=== PATIENT | male | born 1970 | race Caucasian/White ===

== ENCOUNTER 2020-06-21 04:07 | Emergency (ER) | payer OTHER, SELFPAY ==
[2020-06-21] VITALS (23 sets, daily range): BP systolic 151–217; BP diastolic 81–100; PULSE 59–85; RESP 5–16; TEMP 37.2; O2SAT 94–99; BMI 35.9
--- NOTE | 2020-06-21 04:19 | ED_ITS ---
HPI - General Adult <DO Marla Wiley Last Filed: 06/21/20 23:53> General Chief complaint: Abdominal Pain Stated complaint: pain in upper abd Time Seen by Provider: 06/21/20 04:19 Source: patient Mode of arrival: Ambulatory Limitations: no limitations History of Present Illness HPI narrative: 49-year-old male here for evaluation of upper abdominal/epigastric tenderness. Patient states that it started approximately 930 last evening. It has been consistent since then. Some nausea but no vomiting. No change in urinary status. No change in bowel habits. No fevers he states he has had something similar to this greater than 15 years ago and went to an emergency department and was given what he states was a ?GI cocktail? which resolved his symptoms. Has not tried anything for his symptoms today prior to arrival. Related Data Previous Rx's Medication Instructions Recorded amlodipine 5 mg PO DAILY #30 tab 06/21/20 dicyclomine 20 mg PO QID PRN #15 tab 06/21/20 hydrocodone-acetaminophen [[place]] 1 tab PO Q6H PRN #12 tab 06/21/20 ondansetron HCl [Zofran] 4 mg PO Q6H PRN #12 tab 06/21/20 Allergies Allergy/AdvReac Type Severity Reaction Status Date / Time No Known Drug Allergies Allergy Verified 06/21/20 04:46 Review of Systems <DO Marla Wiley Last Filed: 06/21/20 23:53> Constitutional Constitutional: Denies fever(s) and Denies headache(s) ENT Ears, Nose, Mouth, and Throat: Denies headache(s) Cardiovascular Cardiovascular: Denies chest pain and Denies dyspnea Respiratory Respiratory: Denies dyspnea Gastrointestinal Gastrointestinal: Reports abdominal pain, Denies change in bowel habits, Denies diarrhea, Denies nausea and Denies vomiting Genitourinary Genitourinary: Denies dysuria Genitourinary: Denies dysuria Musculoskeletal Musculoskeletal: Denies arthralgias and Denies myalgias Integumentary/Breasts Skin/Breast: Denies lesions and Denies rash Neurologic Neurologic: Denies behavioral changes and Denies headache(s) Psychiatric Psychiatric: Denies behavioral changes Hematologic/Lymphatic Hematologic/Lymphatic: Denies easy bleeding and Denies easy bruising Patient History <DO Marla Wiley Last Filed: 06/21/20 23:53> Medical History Patient denies medical problems (Acute) Social History Smoking Status: Never smoker Exam <Matteo Meza DO - Last Filed: 06/21/20 23:53> Initial Vital Signs Initial Vital Signs: Vital Signs Pulse Rate 82 06/21/20 04:12 Blood Pressure 195/100 H 06/21/20 04:12 Pulse Oximetry 98 06/21/20 04:12 Const General: cooperative and comfortable Limitations: mental status not altered HENMT Head: normal to inspection and normocephalic Resp Effort & Inspection: normal respiratory effort Auscultation: clear to auscultation bilaterally Cardio Rate: regular rate Rhythm: regular rhythm GI Inspection: non-distended Palpation: soft, No firm and No tender Back/Spine/Pelvis Back: No CVA tenderness Skin Lesions: no lesions Rashes: no rashes Neuro General: patient alert and patient awake Cognition: normal cognition Speech: speech normal Extrem General: normal to inspection and capillary refill normal Psych Appearance: grossly normal and well kempt <Logan Ballesteros MD - Last Filed: 06/21/20 17:02> Initial Vital Signs Initial Vital Signs: Vital Signs Pulse Rate 82 06/21/20 04:12 Blood Pressure 195/100 H 06/21/20 04:12 Pulse Oximetry 98 06/21/20 04:12 Scores <Matteo Meza DO - Last Filed: 06/21/20 23:53> GCS Jeremy coma scale eye opening: Spontaneous [place] coma scale verbal response: Orientated Jeremy coma scale motor response: Obey commands Jeremy coma scale total score: 15 Course <Matteo Meza DO - Last Filed: 06/21/20 23:53> Orders Ordered: Discontinued Medications Al Hydrox/Mg Hydrox/Simethicone 20 ml/ Lidocaine HCl 15 ml 0 ml PO NOW ONE Stop: 06/21/20 04:25 Last Admin: 06/21/20 04:50 Dose: 30 ml Documented by: CTRALONZO Dicyclomine HCl (Bentyl) 20 mg PO NOW ONE Stop: 06/21/20 08:12 Last Admin: 06/21/20 08:19 Dose: 20 mg Documented by: DANISHA Hydralazine HCl (Apresoline) 5 mg IV NOW ONE Stop: 06/21/20 09:13 Last Admin: 06/21/20 09:32 Dose: Not Given Documented by: DANISHA Sodium Chloride (Normal Saline 0.9%) 1,000 mls @ 1,000 mls/hr IV BOLUS ONE Stop: 06/21/20 06:38 Last Infusion: 06/21/20 08:12 Dose: 0 mls/hr Documented by: Admin: 06/21/20 06:06 Dose: 1,000 mls/hr Documented by: EARL Ketorolac Tromethamine (Toradol) 30 mg IV NOW ONE Stop: 06/21/20 08:12 Last Admin: 06/21/20 08:19 Dose: 30 mg Documented by: DANISHA Pantoprazole Sodium (Protonix) 40 mg IV NOW ONE Stop: 06/21/20 04:25 Last Admin: 06/21/20 04:50 Dose: 40 mg Documented by: DAVE Vital Signs Vital signs: Vital Signs - 8 hr 06/21/20 09:30 06/21/20 09:31 06/21/20 09:32 Pulse Rate 82 79 Blood Pressure 173/99 H 156/91 H 151/81 H Pulse Oximetry 97 98 <Logan Ballesteros MD - Last Filed: 06/21/20 17:02> Orders Ordered: Discontinued Medications Al Hydrox/Mg Hydrox/Simethicone 20 ml/ Lidocaine HCl 15 ml 0 ml PO NOW ONE Stop: 06/21/20 04:25 Last Admin: 06/21/20 04:50 Dose: 30 ml Documented by: DAVE Dicyclomine HCl (Bentyl) 20 mg PO NOW ONE Stop: 06/21/20 08:12 Last Admin: 06/21/20 08:19 Dose: 20 mg Documented by: DANISHA Hydralazine HCl (Apresoline) 5 mg IV NOW ONE Stop: 06/21/20 09:13 Last Admin: 06/21/20 09:32 Dose: Not Given Documented by: DANISHA Sodium Chloride (Normal Saline 0.9%) 1,000 mls @ 1,000 mls/hr IV BOLUS ONE Stop: 06/21/20 06:38 Last Infusion: 06/21/20 08:12 Dose: 0 mls/hr Documented by: Admin: 06/21/20 06:06 Dose: 1,000 mls/hr Documented by: EARL Ketorolac Tromethamine (Toradol) 30 mg IV NOW ONE Stop: 06/21/20 08:12 Last Admin: 06/21/20 08:19 Dose: 30 mg Documented by: DANISHA Pantoprazole Sodium (Protonix) 40 mg IV NOW ONE Stop: 06/21/20 04:25 Last Admin: 06/21/20 04:50 Dose: 40 mg Documented by: DAVE Vital Signs Vital signs: Vital Signs - 8 hr 06/21/20 09:30 06/21/20 09:31 06/21/20 09:32 Pulse Rate 82 79 Blood Pressure 173/99 H 156/91 H 151/81 H Pulse Oximetry 97 98 Medical Decision Making <Matteo Meza DO - Last Filed: 06/21/20 23:53> Lab Data Lab results reviewed: Yes I reviewed the patient's lab results. Result diagrams: 06/21/20 04:15 06/21/20 04:15 Labs: Lab Results 06/21/20 06/21/20 Range/Units 04:15 04:15 WBC 8.3 (4.5-11.0) X10^3/uL RBC 5.32 (4.5-5.9) X10^6/uL Hgb 16.2 (13.5-17.5) g/dL Hct 46.9 (41-53) % MCV 88.0 (80-100) fL MCH 30.4 (26-34) PG MCHC 34.6 (30-36) % RDW 13.0 (11.6-14.8) % Plt Count 253 (150-400) X10^3/uL Neut % (Auto) 71.1 (50-75) % Lymph % (Auto) 20.8 L (25-40) % [place] % (Auto) 5.9 (3-14) % Eos % (Auto) 1.7 L (2-4) % Baso % (Auto) 0.5 (0-2) % Neut # (Auto) 5900 (5200-0460) /uL Lymph # (Auto) 1700 (5887-4528) /uL [place] # (Auto) 500 (0-900) /uL Eos # (Auto) 100 (0-450) /uL Baso # (Auto) 0 (0-100) /uL Sodium 135 L (137-145) mmol/L Potassium 4.0 (3.4-5.1) mmol/L Chloride 103 (98-107) mmol/L Carbon Dioxide 24 (22-32) mmol/L BUN 10 (9-20) mg/dL Creatinine 0.78 (0.66-1.25) mg/dL Estimated GFR > 60.0 (>60) mL/min BUN/Creatinine Ratio 12.8 (6-22) Glucose 134 H (70-100) mg/dL Calcium 9.5 (8.4-10.2) mg/dL Total Bilirubin 1.2 (0.2-1.3) mg/dL AST 32 (17-59) IU/L ALT 39 (<50) IU/L Alkaline Phosphatase 115 (38-126) U/L Troponin I < 0.012 (0.01-0.034) ng/mL Total Protein 7.1 (6.3-8.2) g/dL Albumin 4.3 (3.5-5.0) g/dL Globulin 2.8 (1.7-4.1) g/dL Albumin/Globulin Ratio 1.5 (1.0-2.8) Lipase 87 (23-300) U/L Urine Dip Bedside Urine Glucose Negative Bedside Urine Bilirubin - Negative Bedside Urine Ketone - Negative Urine Specific [place] 1.010 Bedside Urine Occult Blood - Negative Bedside Urine pH 6.5 Bedside Urine Protein - Negative Bedside Urine Urobilinogen - Negative Bedside Urine Nitrite - Negative Bedside Urine Leukocytes - Negative Esterase Point of care testing: Urine Dip Bedside Urine Glucose Negative Bedside Urine Bilirubin - Negative Bedside Urine Ketone - Negative Urine Specific [place] 1.010 Bedside Urine Occult Blood - Negative Bedside Urine pH 6.5 Bedside Urine Protein - Negative Bedside Urine Urobilinogen - Negative Bedside Urine Nitrite - Negative Bedside Urine Leukocytes - Negative Esterase Imaging Data CT scan - abdomen/pelvis: Radiologist's Impression: Subtle changes within gallbladder lumen and subtle stranding surrounding the gallbladder reason possibility of cholecystiti s. No bile duct obstruction or obvious time. Ultrasound is recommended. Otherwise no acute abnormality ECG Data Prior ECG tracings: not available for review Interpretation: Sinus rhythm Ventricular rate of 74 Normal axis Normal QRS Normal QTC No ST T wave changes MDM Narrative Medical decision making narrative: Patient with a normal EKG. Troponin negative greater than 6 hours of the onset of his symptoms. I feel this is less likely cardiac in origin. Patient had minimal if any improvement after the GI cocktail on the Protonix. He denied the need for any further medication. CT scan was ordered given the location of his symptoms lack of definitive etiology. It does show concerns for potential gallbladder pathology. His lipase and liver enzymes are unremarkable. Right upper quadrant ultrasound was ordered. Care turned over to Dr. Ballesteros a change of shift to follow up on ultrasound and disposition. <Logan Ballesteros MD - Last Filed: 06/21/20 17:02> Lab Data Labs: Lab Results 06/21/20 06/21/20 Range/Units 04:15 04:15 WBC 8.3 (4.5-11.0) X10^3/uL RBC 5.32 (4.5-5.9) X10^6/uL Hgb 16.2 (13.5-17.5) g/dL Hct 46.9 (41-53) % MCV 88.0 (80-100) fL MCH 30.4 (26-34) PG MCHC 34.6 (30-36) % RDW 13.0 (11.6-14.8) % Plt Count 253 (150-400) X10^3/uL Neut % (Auto) 71.1 (50-75) % Lymph % (Auto) 20.8 L (25-40) % [place] % (Auto) 5.9 (3-14) % Eos % (Auto) 1.7 L (2-4) % Baso % (Auto) 0.5 (0-2) % Neut # (Auto) 5900 (6748-0887) /uL Lymph # (Auto) 1700 (6714-3550) /uL [place] # (Auto) 500 (0-900) /uL Eos # (Auto) 100 (0-450) /uL Baso # (Auto) 0 (0-100) /uL Sodium 135 L (137-145) mmol/L Potassium 4.0 (3.4-5.1) mmol/L Chloride 103 (98-107) mmol/L Carbon Dioxide 24 (22-32) mmol/L BUN 10 (9-20) mg/dL Creatinine 0.78 (0.66-1.25) mg/dL Estimated GFR > 60.0 (>60) mL/min BUN/Creatinine Ratio 12.8 (6-22) Glucose 134 H (70-100) mg/dL Calcium 9.5 (8.4-10.2) mg/dL Total Bilirubin 1.2 (0.2-1.3) mg/dL AST 32 (17-59) IU/L ALT 39 (<50) IU/L Alkaline Phosphatase 115 (38-126) U/L Troponin I < 0.012 (0.01-0.034) ng/mL Total Protein 7.1 (6.3-8.2) g/dL Albumin 4.3 (3.5-5.0) g/dL Globulin 2.8 (1.7-4.1) g/dL Albumin/Globulin Ratio 1.5 (1.0-2.8) Lipase 87 (23-300) U/L Urine Dip Bedside Urine Glucose Negative Bedside Urine Bilirubin - Negative Bedside Urine Ketone - Negative Urine Specific [place] 1.010 Bedside Urine Occult Blood - Negative Bedside Urine pH 6.5 Bedside Urine Protein - Negative Bedside Urine Urobilinogen - Negative Bedside Urine Nitrite - Negative Bedside Urine Leukocytes - Negative Esterase Point of care testing: Urine Dip Bedside Urine Glucose Negative Bedside Urine Bilirubin - Negative Bedside Urine Ketone - Negative Urine Specific [place] 1.010 Bedside Urine Occult Blood - Negative Bedside Urine pH 6.5 Bedside Urine Protein - Negative Bedside Urine Urobilinogen - Negative Bedside Urine Nitrite - Negative Bedside Urine Leukocytes - Negative Esterase Discharge Plan Departure Patient Disposition: Home Clinical Impression: Gallbladder pain Hypertension Qualifiers: Hypertension type: essential hypertension Qualified Code(s): I10 - Essential (primary) hypertension Cholelithiasis Qualifiers: Cholelithiasis location: gallbladder Cholecystitis presence: with cholecystitis Cholecystitis acuity: unspecified acuity Biliary obstruction: without biliary obstruction Qualified Code(s): K80.10 - Calculus of gallbladder with chronic cholecystitis without obstruction Discharge Date/Time: 06/21/20 09:56 Instructions: Essential Hypertension, DI for Gallstones, DI for Abdominal Pain- Adult Activity Restrictions/Additional Instructions: 1. Follow-up with your primary care physician to help manage her pain and discomfort and to evaluate you for your hypertension. 2. Take the amlodipine 5 mg per day to help control your blood pressure. 3. Your CT scan and ultrasound revealed that you have gallstones with questionable mild inflammatory changes and thickening of your gallbladder wall. If you develop increased pain and discomfort, fever, uncontrolled nausea and vomiting, you need to return to the emergency department to be re-evaluated. 4. Call the general surgeon Dr. Otto's office tomorrow to make a follow-up appointment to be evaluated to have your gallbladder removed. 5. If you develop severe abdominal pain, uncontrolled nausea and vomiting, uncontrolled diarrhea, vomiting bile, blood, black tarry stools, bloody stools, dizziness, lightheadedness, profuse shortness of breath, chest pain , fever, or passing-out you need to proceed to the nearest emergency department. 6. To keep yourself hydrated you need to drink between 2 and 4 L of fluid per day. Advance her diet as tolerated. Avoid fatty greasy foods which will stim ulate the gallbladder to contract and may cause should have increased pain and discomfort. 7. Take the medications as prescribed: Zofran 4 mg 3 to 4 times a day for nausea and vomiting, Bentyl 20 mg 3 to 4 times a day for abdominal pain and cramps, Norco5/ 325 as a rescue medication. Prescriptions: New dicyclomine 20 mg tablet 20 mg PO QID PRN (Reason: abdominal discomfort) Qty: 15 RF: 0 ondansetron HCl [Zofran] 4 mg tablet 4 mg PO Q6H PRN (Reason: nausea and vomiting) Qty: 12 RF: 0 hydrocodone-acetaminophen [[place]] 5-325 mg tablet 1 tab PO Q6H PRN (Reason: pain) Qty: 12 RF: 0 amlodipine 5 mg tablet 5 mg PO DAILY Qty: 30 RF: 0 Referrals: Vikas Smith MD [Physician] - (Cholelithiasis with mild GB wall thickening) <Logan Ballesteros MD - Last Filed: 06/21/20 17:02> Cosign ED Attending Cosignature Attestation: 0720: Report was provided by at the change of shift. The patient's pain is 5/10 in intensity in he does not want any pain medicine at this time. The patient has questionable cholecystitis with stones in the gallbladder on the CT scan and ultrasound was obtained and we are waiting for the official report to see if the patient has of gallstones or acute cholecystitis to determine whether not he needs to be admitted. Depending on the report will discuss the options with the patient. The patient may be able to go home and be evaluated by General surgery as an outpatient. 0814:Review: Laboratory chemistries revealed a WBC of 8.3, glucose 134, electrolytes normal, bilirubin 1.2, liver function tests normal, lipase 87. CT scan of abdomen revealed: 1. The subtle changes within the gallbladder lumen and subtle stranding surrounding the gallbladder raises the possibility of cholecystitis. There is no bile duct obstruction or obvious stone noted. Ultrasound is recommended. 2. Otherwise there is no acute abnormality. 3. There is degenerative changes of the lumbar spine with moderate canal and foraminal stenosis at L4-L5. At the present time we are waiting for the official report from the ultrasound of the gallbladder to discuss the options with the patient and possibly the general surgeon on-call. 0924: The patients US of his gallbladder revealed: 1. Cholelithiasis. 2. Gallbladder wall thickening, which may indicate cholecystitis. However the patient does not demonstrate tenderness overlying the gallbladder. Clinical correlation is recommended. 0931: The patient states that his pain and discomfort completely resolved after being administered Bentyl and Toradol. He was informed of the ultrasound report and CT report and has elected to be discharged and to follow-up with the general surgeon as an outpatient. The patient will be referred to Dr. Smith.
[2020-06-21 04:31] LABS: Add Manual Diff / Slide Review NO; Basophils Absolute Auto 0 /uL (0-100); Basophils Percent Auto 0.5 % (0-2); Eosinophils Absolute Auto 100 /uL (0-450); Eosinophils Percent Auto 1.7 % (2-4); Hematocrit 46.9 % (41-53); Hemoglobin 16.2 g/dL (13.5-17.5); Lymphocytes Absolute Auto 1700 /uL (1100-4500); Lymphocytes Percent Auto 20.8 % (25-40); Mean Corpuscular HGB Conc 34.6 % (30-36); Mean Corpuscular Hemoglobin 30.4 PG (26-34); Monocytes Absolute Auto 500 /uL (0-900); Monocytes Percent Auto 5.9 % (3-14); Neutrophils Absolute Auto 5900 /uL (1500-7000); Neutrophils Percent Auto 71.1 % (50-75); Platelet Count 253 X10^3/uL (150-400); Red Blood Cell Count 5.32 X10^6/uL (4.5-5.9); White Blood Cell Count 8.3 X10^3/uL (4.5-11.0)
[2020-06-21 04:43] LABS: Alanine Aminotransferase 39 IU/L (<50); Albumin 4.3 g/dL (3.5-5.0); Albumin Globulin Ratio 1.5 (1.0-2.8); Alkaline Phosphatase 115 U/L (38-126); Aspartate Aminotransferase 32 IU/L (17-59); BUN Creatinine Ratio 12.8 (6-22); Bilirubin Total 1.2 mg/dL (0.2-1.3); Blood Urea Nitrogen 10 mg/dL (9-20); Calcium 9.5 mg/dL (8.4-10.2); Carbon Dioxide 24 mmol/L (22-32); Chloride 103 mmol/L (98-107); Estimated Glomerular Filt Rate > 60.0 mL/min (>60); Globulin 2.8 g/dL (1.7-4.1); Glucose 134 mg/dL (70-100); HEMOLYSIS 23 (0-50); Lipase 87 U/L (23-300); Sodium 135 mmol/L (137-145); Total Protein 7.1 g/dL (6.3-8.2)
[2020-06-21] MEDS: PANTOPRAZOLE 40 MG VIAL IV (04:50)
[2020-06-21] MEDS: MAG HYDROX/ALUMINUM/SIMETH SUS 20 ML, LIDOCAINE VISCOUS 2% 15 ML PO (04:50)
[2020-06-21 04:54] LABS: Troponin I < 0.012 ng/mL (0.01-0.034)
--- NOTE | 2020-06-21 05:40 | DI.CT.S_ITS ---
PROCEDURE: CT ABDOMEN PELVIS W CON INDICATIONS: epigastric abd pain TECHNIQUE: After the administration of intravenous contrast, 5 mm thick sections acquired from the diaphragm to the symphysis. 5 mm coronal and sagittal reformats were acquired. For radiation dose reduction, the following was used: automated exposure control, adjustment of mA and/or kV according to patient size. COMPARISON: None. FINDINGS: Image quality: Excellent. ABDOMEN: Lung bases: Lung bases are clear. Heart size is normal. Solid organs: Liver is normal in size and enhancement. Gallbladder demonstrates mild surrounding ground-glass density. Biliary system is non dilated. Pancreas enhances normally. Spleen is normal in size and enhancement. No adrenal nodules. Kidneys demonstrate normal size and enhancement, without hydronephrosis. Peritoneum and bowel: Bowel loops demonstrate normal wall thickness and caliber. No free fluid or air. Normal appendix. Nodes and vessels: No retroperitoneal or mesenteric adenopathy by size criteria. Aorta and inferior vena cava are normal in size. Miscellaneous: No ventral hernias. PELVIS: Genitourinary: Bladder wall thickness is normal. Miscellaneous: No inguinal hernias or adenopathy. Bones: No suspicious bony lesions. No vertebral body compression fractures. IMPRESSION: 1. Mild fat stranding surrounding the gallbladder, which could indicate mild/early cholecystitis. This could be further assessed with ultrasound, if clinically indicated. 2. Normal appendix. 3. Concordant with preliminary interpretation. Dictated by: Lawrence Monte M.D. on 06/21/2020 at 9:05 Approved by: Lawrence Monte M.D. on 06/21/2020 at 9:06
[2020-06-21] MEDS: SODIUM CHLORIDE 0.9% 1,000 ML 1000 ML IV (06:06)
--- NOTE | 2020-06-21 06:25 | DI.US.S_ITS ---
PROCEDURE: US ABDOMEN LIMITED INDICATIONS: RUQ, GB TECHNIQUE: Real-time focused scanning was performed of the abdomen, with image documentation. COMPARISON: [facility], CT, CT ABDOMEN PELVIS W CON, 06/21/2020, 5:40. FINDINGS: Liver is within normal limits. Gallbladder wall is thickened to 5 mm. Negative sonographic Bansal sign. Wall echo shadow complex suggestive of multiple internal calculi. No biliary ductal dilatation. Visualized pancreas within normal limits. IMPRESSION: 1. Cholelithiasis. 2. Gallbladder wall thickening, which may indicate cholecystitis. However, the patient does not demonstrate tenderness overlying the gallbladder. Clinical correlation recommended. Dictated by: Lawrence Monte M.D. on 06/21/2020 at 9:07 Approved by: Lawrence Monte M.D. on 06/21/2020 at 9:08
[2020-06-21] MEDS: DICYCLOMINE 10 MG CAPSULE 20 MG PO (08:19)
[2020-06-21] MEDS: KETOROLAC 60 MG/2 ML VIAL 30 MG IV (08:19)
== END 2020-06-21 09:56 | disposition home or self-care (01) ==
PROVIDERS: Emergency Medicine; Emergency Provider Emergency Medicine; Family Provider Family Medicine
DX: K80.10 Calculus of gallbladder with chronic cholecystitis without obstruction (principal); I10 Essential (primary) hypertension; R11.0 Nausea
CPT/HCPCS: 36415; 74177; 76705; 80053; 81003; 83690; 84484; 85025; 93005; 96361; 96374; 96375; 99284; 99285; C9113; J1885; Q9967

== ENCOUNTER → 2020-07-05 09:34 | Outpatient (CLI) | payer OTHER, SELFPAY ==
[2020-07-06 21:49] LABS: COVID19 Sendout Not Detected (Not Detect)
== END ==
PROVIDERS: Family Provider Family Medicine; Visit Provider Physician Assistant
DX: Z11.59 Encounter for screening for other viral diseases (principal)
CPT/HCPCS: 87635

== ENCOUNTER 2020-07-08 08:05 | Day surgery (SDC) | payer OTHER, SELFPAY ==
[2020-07-03 10:55] VITALS: BMI 34.7
[2020-07-08] VITALS (13 sets, daily range): BP systolic 127–155; BP diastolic 72–93; PULSE 64–97; RESP 14–20; TEMP 36.3–36.9; O2SAT 92–100; BMI 33.5
--- NOTE | 2020-07-08 | PATH_ITS ---
[facility] Accession Number: [id number] . 01 Material submitted: . gallbladder - GALLBLADDER . 01 Clinical history: . LAP MARIANNE . 02 Diagnosis: Gallbladder, Laparoscopic Cholecystectomy: Chronic cholecystitis and cholelithiasis. Cystic duct is obstructed by a stone at gross examination. [facility] 07/10/2020 1550 Local . 02 Electronically signed: . Shante Ordaz MD, Pathologist NPI- [id number] . 01 Gross description: . Received in formalin, labeled with the patient's name, MRN and gallbladder, is a 9.0 x 3.2 x 2.5 cm gallbladder with an attached cystic duct measuring 0.1 cm in length by 0.3 cm in diameter. The cystic duct is obstructed by a 1.2 cm in greatest dimension red-brown calculus. The serosal surface is pink-gibbs and smooth. The gallbladder is opened to reveal multiple red-brown calculi ranging in size from 0.4 cm to 1.0 cm in greatest dimension. The mucosal surface is pink-gibbs and trabeculated. The gallbladder wall measures up to 0.5 cm. No abnormalities are identified. No lymph node is identified. The cystic duct margin is inked black. [employer] sections of the gallbladder body, the gallbladder wall, and a shave of the cystic duct margin are submitted in cassette A1. (SD/[id number]) /MRV 07/09/2020 1039 Local . 02 Pathologist provided ICD-10: K80.20 . 02 CPT . 409128 Performed at: 01 [facility] [id number], [place], [place] [id number] MD Jhon Sullivan MD Phone: [phone] Performed at: [address] [facility] [id number] [place] [id number] MD Elenita Cox MD Phone: [phone]
[2020-07-08] MEDS: LACTATED RINGERS 1,000 ML 100 ML IV (09:00)
--- NOTE | 2020-07-08 09:03 | SUR.PREOP ---
Called surgeon in OR to ask about indacyanine green injection. Dr. Myers gave verbal order to give 25mg of indocyanine green IV on patient arrival to preop area. To be reconstituted and given per package instructions. Given per order at 0855.
--- NOTE | 2020-07-08 09:09 | PM.PREOP ---
Pre-operative Note COVID-19 COVID-19 status: Negative Result date/Date tested (Pos, Neg/Pending): 07/05/20 Interval Note History & Physical reviewed/Exam performed by Physician: Yes Changes to H&P: No
[2020-07-08] MEDS: Non-Formulary Medication (Indocyanine Green 25 MG) 25 EACH IV (09:31)
[2020-07-08] MEDS: PIPERACILLIN-TAZO 3.375 GM/50 ML FROZ.PIGGY IV (09:40)
[2020-07-08] MEDS: BUPIVACAINE 0.25% W/ EPI 30 ML VIAL INJ (10:09)
--- NOTE | 2020-07-08 11:08 | SUR.OPER ---
19fr round roger drain
[2020-07-08] MEDS: fentaNYL 100 MCG/2 ML INJ IV ×2 (12:03→12:09)
--- NOTE | 2020-07-08 12:18 | P.OP_ITS ---
Operative Date/Time/Diagnoses Date of procedure: 07/08/20 Time of procedure: 12:18 Pre-op diagnosis: Symptomatic cholelithiasis Post-op diagnosis: other (Symptomatic cholelithiasis, chronic cholecystitis) Procedure & Clinicians Procedure: Laparoscopic cholecystectomy, indocyanine green cholangiography Same procedure as scheduled: Yes Indications: 50-year-old man with symptomatic cholelithiasis Surgeon: Rebeca Myers Click Yes if Unassisted: Yes Anesthesia Type: General Operative Notes Findings: Thickened gallbladder, covered with a dense fatty inflammatory rind, with multiple accessory vessels going to the gallbladder, good visualization of the cystic duct using indocyanine green Specimen(s): other (Gallbladder) Estimated Blood Loss (mL): 150 Procedure in detail: The patient was brought into the operating room and placed supine on the OR table. Sequential compression devices were placed on both legs and turned on. Appropriate perioperative antibiotics were given prior to the start of surgery. General anesthesia was induced the patient was intubated. The abdomen was prepped and draped in sterile fashion. Surgical time-out was conducted. Local anesthetic was injected under the skin just superior to the umbilicus and a 5 mm vertical incision was made at this site. The umbilical stalk was grasped with a Rukhsana and elevated. A Veress needle was passed through the fascia into proper position. The position was tested with a saline drop test which was appropriate for intra-abdominal Veress needle placement. The abdomen was then insufflated in the usual fashion. Once insufflated to 15 mm Hg the Veress needle was removed and a 5 mm optical trocar was placed under direct vision using a 5 mm 30 degree scope. Once the camera was inside the abdomen I took a look around. There was no injury from port placement. Two additional ports were placed in a similar fashion in the right upper quadrant and a 10 mm port was placed in the epigastrium. I grasped and elevated the gall bladder, and found that it was deeply hard and thickened with a thick fatty rind encasing it. I grasped the fundus with a toothed grasper and elevated it in the usual way. The thick fatty rind required prolonged and tedious dissection to get through it safely. This fatty rind was well vascularized and there were multiple arterial branches that had to be controlled and divided individually during the dissection. Indocyanine green was given previously in the pre op area, so at this point I was able to turn on the flourescent lamp and view the bile ducts. This was very helpful as the ducts were obscured with acute and chronic inflammatory tissue. Once the pathway of the ducts was clearly seen, I was able to proceed with dissection of the cystic duct and artery. The cystic duct was soft and narrow, with no obstructing stones. Once I was able to clearly identify the cystic artery with liver behind and between the two structures, I placed three clips on the patient side and once clip on the gall bladder side and divided the duct and artery using laparoscopic [place]. Once this was done, I dissected the gall bladder off of the gall bladder fossa of the liver. Again, multiple accessory vessels were encountered entering the gall bladder and were controlled with endoclips and cautery. Once it was entirely freed from the liver, the gall bladder was placed inside an Endo-Catch bag and removed through the epigastric port site. I did have to enlarge the epigastric site in order to get the gallbladder out as it was full of large stones. Once it was out and passed off to the back table I then took another look inside the abdomen. I irrigated with one liter of saline, and juárez ctioned clean any remaining blood or fluid on the lateral side of the liver and in the subhepatic space. The bleeding vessels were controlled with clips. There was a small amount of oozing from the liver surface which was controlled with cautery and Surgicel. At this point a 19 round roger drain was placed through the right lateral port site, and positioned in the gall bladder fossa due to concern for recurrent bleeding after clipping and cauterizing several accessory vessels going to the gall bladder which were difficult to control.. The drain was secured to the skin with a 3-0 Nylon suture. The epigastric port site was closed with O Vicryl using a Bladimir Kaiser device. At this point the insufflation was removed from the abdomen and the epigastric port site was closed with 3-O Vicryl in the subcutaneous layers, and 4 Monocryl in the skin. The remaining port sites were closed with 4 Monocryl in the skin. The epigastric port site was sealed with steri strips. The remaining ports were sealed with Dermabond. Local anesthetic was given at each of the port sites and in the fascia. This concluded the procedure. At this point the needle sponge and instrument counts were correct x 2. The gallbladder was passed off the table for pathology. Patient was awakened from anesthesia and extubated. He was transferred to the postanesthesia care unit in stable condition. Complications: none Post-operative Condition: stable Disposition: PACU
[2020-07-08] MEDS: ACETAMINOPHEN 325 MG TABLET 650 MG PO (12:47)
[2020-07-08] MEDS: OXYCODONE/ACETAMINOPHEN 5/325 TABLET 1 TAB PO (12:48)
[2020-07-08] MEDS: HYDROMORPHONE 1 MG INJ IV (13:45)
--- NOTE | 2020-07-08 15:39 | PC.NURSE ---
PT ACCEPTED TO ROOM 229 POST OP WITH STABLE VS- AFEBRILE AND PT CONTROLLED AT PRESENT ADMISSION COMPLETED-LAP SITEES X 4 BALDEMAR DRAIN WITH NO DRAINAGE - ORIENTED TO ROOM AND CALL LIGHT
[2020-07-08] MEDS: PIPERACILLIN-TAZO 4.5 GM/100 ML FROZ.PIGGY IV ×2 (15:53→21:26)
[2020-07-08] MEDS: OXYCODONE/ACETAMINOPHEN 5/325 TABLET 2 TAB PO ×2 (15:55→21:00)
--- NOTE | 2020-07-08 17:06 | PC.NURSE ---
Addendum entered by Dilma Moreno R.N. 07/08/20 18:07: 1800- Patient states his pain is well controlled with the po med. Will monitor. Original Note: 1700- Patient states the percocet has not changed his pain. He wants to try to give it a while longer and if needed he will call for pain med IV. Will monitor.
[2020-07-08] MEDS: FAMOTIDINE 20 MG/50 ML PIGGYBACK 200 MG IV (21:00)
[2020-07-09 00:51] VITALS: BP 144/81; PULSE 83; RESP 16; TEMP 36.2; O2SAT 95
[2020-07-09] MEDS: PIPERACILLIN-TAZO 4.5 GM/100 ML FROZ.PIGGY IV ×2 (03:33→09:30)
[2020-07-09 05:00] VITALS: BP 145/89; PULSE 69; RESP 16; TEMP 36.1; O2SAT 96
[2020-07-09 05:15] LABS: Add Manual Diff / Slide Review NO; Basophils Absolute Auto 0 /uL (0-100); Basophils Percent Auto 0.1 % (0-2); Eosinophils Absolute Auto 0 /uL (0-450); Eosinophils Percent Auto 0.1 % (2-4); Hemoglobin 14.4 g/dL (13.5-17.5); Lymphocytes Absolute Auto 1100 /uL (1100-4500); Lymphocytes Percent Auto 11.1 % (25-40); Mean Corpuscular HGB Conc 35.3 % (30-36); Mean Corpuscular Hemoglobin 31.1 PG (26-34); Mean Corpuscular Volume 88.1 fL (80-100); Monocytes Absolute Auto 800 /uL (0-900); Monocytes Percent Auto 7.7 % (3-14); Neutrophils Absolute Auto 8300 /uL (1500-7000); Platelet Count 291 X10^3/uL (150-400); Red Blood Cell Count 4.65 X10^6/uL (4.5-5.9); Red Cell Distribution Width 13.3 % (11.6-14.8); White Blood Cell Count 10.2 X10^3/uL (4.5-11.0)
[2020-07-09 05:23] LABS: Alanine Aminotransferase 68 IU/L (<50); Albumin 3.9 g/dL (3.5-5.0); Albumin Globulin Ratio 1.3 (1.0-2.8); Alkaline Phosphatase 98 U/L (38-126); Aspartate Aminotransferase 46 IU/L (17-59); BUN Creatinine Ratio 9.5 (6-22); Bilirubin Total 2.3 mg/dL (0.2-1.3); Blood Urea Nitrogen 9 mg/dL (9-20); Calcium 9.5 mg/dL (8.4-10.2); Carbon Dioxide 27 mmol/L (22-32); Chloride 101 mmol/L (98-107); Estimated Glomerular Filt Rate > 60.0 mL/min (>60); Glucose 131 mg/dL (70-100); HEMOLYSIS < 15 (0-50); Potassium 4.3 mmol/L (3.4-5.1); Sodium 135 mmol/L (137-145); Total Protein 6.9 g/dL (6.3-8.2)
[2020-07-09 08:35] VITALS: BP 157/78; PULSE 59; RESP 18; TEMP 37; O2SAT 98
[2020-07-09] MEDS: ACETAMINOPHEN 325 MG TABLET 650 MG PO (08:51)
[2020-07-09] MEDS: AMLODIPINE 5 MG TABLET PO (08:51)
[2020-07-09] MEDS: FAMOTIDINE 20 MG/50 ML PIGGYBACK 200 MG IV (08:52)
--- NOTE | 2020-07-09 13:42 | PC.NURSE ---
1300- Reviewed d/c packet, educational materials with pt and . Instructed on f/u appt, lab orders, rx electronically sent. Reviewed med regimen, next dose due, side effects. Reviewed post op plan of care, activity restrictions, dietary needs, wound care, f/u appt. Both pt and verbalize understanding of teaching. Both have no questions at this time. Removed PIV with cath tip intact. Pt left with all belongings. Was escorted by MOLDING MACHINE TENDER to exit via w/c in no distress at 1330.
--- NOTE | 2020-07-09 16:01 | CM.DANOTE ---
Discharge Planning/Care Management DCP: case received and discussed in Team Rounds. Pt is a 50 year old male who admitted for a scheduled Laproscopic cholecystectomy. [facility] Admission status: OBS: per UR RN Cat. Surgeon: Dr. Myers. A check in now does show that pt was ok'd for d/c to home setting and left in company of his earlier this afternoon. No d/c concerns were identified by the care team members. CM Discharge Assessment Start: 07/09/20 16:00 Freq: Status: Active Protocol: Document 07/09/20 16:00 ITV (Rec: 07/09/20 16:01 ITV [id number]) Discharge Planning Assessment Advance Directives? No History Provided By Medical Record Prior Living Arrangements House Household Members spouse Is patient alert and oriented? 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 No Does patient have SEO/SOB No Hx Sleep Apnea No Currently Taking a Beta Jerrod No Hx Chest Pain No Hx SOB No Hx Syncope or Dizziness No Anti-Coagulant Therapy No Has a Data Entry Representative No Cardiac Testing No Hx Pacemaker/ICD No Pacemaker Rep Required? No Cardiac Clearance Received Not Applicable dysphagia No Urinary Catheter Present No Hx Urinary Self Catheterization No Diabetes No Hx Drug Resistant Organism No Presence of External or Internal Medical No Devices Have you had any close contact with Unknown someone diagnosed with COVID-19? Marital Status Lives With spouse Patient Discharge Plan Description Return Home Advance Directives? No
== END 2020-07-09 13:30 | disposition home or self-care (01) ==
LOC: OR 09:35 → AC 12:38 → ICU 12:41
PROVIDERS: Family Provider Family Medicine; Referring Provider Surgery; Visit Provider Surgery
PROC: 0FT44ZZ Resection of Gallbladder, Percutaneous Endoscopic Approach (ICD-10-PCS; CPT 47562; principal; 2020-07-08 09:30)
DX: K80.10 Calculus of gallbladder with chronic cholecystitis without obstruction (principal); I10 Essential (primary) hypertension
CPT/HCPCS: 47563; 36415; 80053; 85025; J1100; J1170; J2250; J2405; J2543; J2704; J3010

== ENCOUNTER → 2020-07-11 07:58 | Outpatient (CLI) | payer OTHER, SELFPAY ==
[2020-07-08 13:00] VITALS: BMI 33.5
[2020-07-11 08:55] LABS: Add Manual Diff / Slide Review NO; Basophils Absolute Auto 0 /uL (0-100); Basophils Percent Auto 0.3 % (0-2); Eosinophils Absolute Auto 100 /uL (0-450); Eosinophils Percent Auto 1.2 % (2-4); Hematocrit 44.3 % (41-53); Hemoglobin 15.5 g/dL (13.5-17.5); Lymphocytes Absolute Auto 1000 /uL (1100-4500); Lymphocytes Percent Auto 10.8 % (25-40); Mean Corpuscular HGB Conc 34.9 % (30-36); Mean Corpuscular Hemoglobin 30.7 PG (26-34); Mean Corpuscular Volume 87.7 fL (80-100); Monocytes Absolute Auto 800 /uL (0-900); Monocytes Percent Auto 9.2 % (3-14); Neutrophils Absolute Auto 7200 /uL (1500-7000); Neutrophils Percent Auto 78.5 % (50-75); Platelet Count 275 X10^3/uL (150-400); Red Blood Cell Count 5.06 X10^6/uL (4.5-5.9); White Blood Cell Count 9.1 X10^3/uL (4.5-11.0)
[2020-07-11 10:04] LABS: Alanine Aminotransferase 64 IU/L (<50); Albumin 4.1 g/dL (3.5-5.0); Albumin Globulin Ratio 1.3 (1.0-2.8); Alkaline Phosphatase 118 U/L (38-126); Aspartate Aminotransferase 42 IU/L (17-59); Bilirubin Total 1.9 mg/dL (0.2-1.3); Blood Urea Nitrogen 8 mg/dL (9-20); Calcium 9.4 mg/dL (8.4-10.2); Carbon Dioxide 28 mmol/L (22-32); Chloride 101 mmol/L (98-107); Estimated Glomerular Filt Rate > 60.0 mL/min (>60); Globulin 3.2 g/dL (1.7-4.1); Glucose 117 mg/dL (70-100); HEMOLYSIS < 15 (0-50); Potassium 3.3 mmol/L (3.4-5.1); Sodium 136 mmol/L (137-145); Total Protein 7.3 g/dL (6.3-8.2)
== END ==
PROVIDERS: Family Provider Family Medicine; Referring Provider Surgery; Visit Provider Surgery
DX: Z90.49 Acquired absence of other specified parts of digestive tract (principal)
CPT/HCPCS: 36415; 80053; 85025

== ENCOUNTER → 2021-03-18 09:09 | Outpatient (CLI) | payer OTHER, SELFPAY ==
[2020-07-23 09:32] VITALS: BMI 33.5
[2021-03-18] MEDS: COVID-19 VACC #1, MRNA(MOD) 100 MCG/0.5 ML VIAL IM (09:15)
== END ==
PROVIDERS: Family Provider Family Medicine; Visit Provider Internal Medicine
DX: Z23 Encounter for immunization (principal)
CPT/HCPCS: 0011A; 91301

== ENCOUNTER → 2021-04-15 15:55 | Outpatient (CLI) | payer OTHER, SELFPAY ==
[2020-07-23 09:32] VITALS: BMI 33.5
[2021-04-15] MEDS: COVID-19 VACC #2, MRNA(MOD) 100 MCG/0.5 ML VIAL IM (15:58)
== END ==
PROVIDERS: Family Provider Family Medicine; Visit Provider Internal Medicine
DX: Z23 Encounter for immunization (principal)
CPT/HCPCS: 0012A; 91301

== ENCOUNTER 2022-04-04 18:56 | Emergency (ER) | payer OTHER, SELFPAY ==
[2020-07-23 09:32] VITALS: BMI 33.5
[2022-04-04 19:14] VITALS: BP 155/72; PULSE 74; RESP 18; TEMP 36.8; O2SAT 96; BMI 34.5
== END 2022-04-04 21:44 | disposition left against medical advice (07) ==
PROVIDERS: Emergency Provider Emergency Medicine; Family Provider Family Medicine
CPT/HCPCS: 99281

== ENCOUNTER 2022-09-15 16:36 | Emergency (ER) | payer OTHER, SELFPAY ==
[2020-07-23 09:32] VITALS: BMI 33.5
[2022-09-15 16:55] VITALS: BP 153/85; PULSE 86; RESP 20; TEMP 36.2; O2SAT 96; BMI 34.5
--- NOTE | 2022-09-15 19:01 | PC.NURSE ---
pt states he woke up on monday morning and went to get out of bed and his foot hurt. redness on right inner ankle/foot. slightly swollen. small tender spot in middle of redness. pt has tried to ice it and used Aleive. nothing makes it feel better
--- NOTE | 2022-09-15 19:21 | ED_ITS ---
HPI - Extremity Injury (Lower) <Adams Johnson PA-C - Last Filed: 09/15/22 19:38> General Chief Complaint: Extremity Injury, Lower Stated Complaint: rt foot pain, swelling a lot Time Seen by Provider: 09/15/22 18:14 Source: patient Mode of arrival: Ambulatory History of Present Illness HPI Narrative: Then the redness developing became concerned. Patient is nondiabetic is a 52-year-old male presents to the emergency department due to right foot erythema swelling onset approximately 3 days ago. He is not recall any acute injuries to the foot. States that it became red over the last few days and has begun expres sing concern. Denies any fevers, nausea, vomiting, or chills. Denies being diabetic. Related Data Previous Rx's Medication Instructions Recorded amlodipine 5 mg tablet 5 mg PO DAILY #30 tabs 06/21/20 dicyclomine 20 mg tablet 20 mg PO QID PRN abdominal 06/21/20 discomfort #15 tabs hydrocodone 5 mg-acetaminophen 325 1 tab PO Q6H PRN pain #12 tabs 06/21/20 mg tablet ([place]) ondansetron HCl 4 mg tablet 4 mg PO Q6H PRN nausea and 06/21/20 (Zofran) vomiting #12 tabs docusate sodium 100 mg capsule 100 mg PO BID prevent constipation 07/08/20 from pain meds #20 caps oxycodone 5 mg tablet 5 mg PO Q4H PRN post operative 07/08/20 pain #30 tabs cephalexin 500 mg capsule 500 mg PO QID 7 days #28 caps 09/15/22 Allergies Allergy/AdvReac Type Severity Reaction Status Date / Time No Known Drug Allergies Allergy Verified 07/23/20 09:47 Review of Systems <Adams Johnson PA-C - Last Filed: 09/15/22 19:38> Review of Systems Narrative: GENERAL: Denies chills, fatigue, malaise, fever, sweats. HEENT: Denies sinus pain, ear pain, sore throat, difficulty swallowing, dizziness. RESPIRATORY: Denies dyspnea, cough, wheezing, hemoptysis, sputum. CARDIOVASCULAR: Denies chest pain, palpitations, orthopnea, edema, GASTROINTESTINAL: Denies nausea, vomiting, abdominal pain, diarrhea, constipation, melena. : Denies dysuria, frequency, incontinence, hematuria, urinary retention. MUSCULOSKELETAL: denies weakness, joint pain, or bony pain SKIN: Foot rash NEUROLOGIC: Denies weakness, headache, numbness, change in speech, confusion, seizures, incoordination. PSYCHIATRIC: No concerning psychosocial issues. 12 point review of systems is negative except for those stated above Patient History <Adams Johnson PA-C - Last Filed: 09/15/22 19:38> Medical History (Updated 09/15/22 @ 19:36 by Adams Johnson PA-C) HTN (hypertension) Patient denies medical problems Surgical History History of repair of ACL Hx of knee surgery Hx of vasectomy Family History Father Hypertension Gallstones Mother Breast cancer Social History marital status: household members: spouse occupational status: employed Smoking Status: Never smoker alcohol intake: current substance use type: does not use Smoking Status: Never smoker alcohol intake frequency: a few times a week Substance Use Type: does not use Exam <Adams Johnson PA-C - Last Filed: 09/15/22 19:38> Narrative Exam Narrative: GENERAL: Well-developed patient, in mild distress. HEAD: Atraumatic. Normocephalic. EYES: Pupils equal round and reactive. Extraocular motions intact. No scleral icterus. No injection or drainage. ENT: Nose without bleeding, purulent drainage. Throat without erythema, tonsillar hypertrophy or exudate. Airway patent. NECK: Trachea midline. Non tender CARDIOVASCULAR: Regular rate and rhythm without murmurs, gallops, or rubs. RESPIRATORY: Clear to auscultation. Breath sounds equal bilaterally. No wheezes, rales, or rhonchi. GASTROINTESTINAL: Abdomen soft, non-tender, nondistended. EXTREMITIES: No edema or joint tenderness. BACK: Nontender without deformity or crepitance. No flank tenderness. NEURO: AOx3. SKIN: Cool area of erythema to the medial aspect of the foot. No areas of fluctuance. Diffuse mild tenderness to palpation. Initial Vital Signs Initial Vital Signs: Vital Signs Temperature 97.1 F L 09/15/22 16:55 Pulse Rate 86 09/15/22 16:55 Respiratory Rate 20 09/15/22 16:55 Blood Pressure 153/85 H 09/15/22 16:55 Pulse Oximetry 96 09/15/22 16:55 Oxygen Delivery Method 09/15/22 16:55 <Sarah Beth Brizuela DO - Last Filed: 09/16/22 08:58> Initial Vital Signs Initial Vital Signs: Vital Signs Temperature 97.1 F L 09/15/22 16:55 Pulse Rate 86 09/15/22 16:55 Respiratory Rate 20 09/15/22 16:55 Blood Pressure 153/85 H 09/15/22 16:55 Pulse Oximetry 96 09/15/22 16:55 Oxygen Delivery Method 09/15/22 16:55 Course <Adams Johnson PA-C - Last Filed: 09/15/22 19:38> Vital Signs Vital signs: Vital Signs - 8 hr 09/15/22 16:55 Temperature 97.1 F L Pulse Rate 86 Respiratory Rate 20 Blood Pressure 153/85 H Pulse Oximetry 96 Oxygen Delivery Method Room Air <Sarah Beth Brizuela DO - Last Filed: 09/16/22 08:58> Vital Signs Vital signs: Vital Signs - 8 hr 09/15/22 16:55 Temperature 97.1 F L Pulse Rate 86 Respiratory Rate 20 Blood Pressure 153/85 H Pulse Oximetry 96 Oxygen Delivery Method Room Air MDM - Extremity Injury (Lower) <Adams Johnson PA-C - Last Filed: 09/15/22 19:38> MDM Narrative Medical decision making narrative: This is a 52-year-old male presenting to the emergency department due to right lower extremity swelling and mild erythema. Unclear whether cellulitic as the foot did appear red but was very close to the touch and only very mildly erythematous. Will treat empirically with oral antibiotics as well as instructions to treat with ice, warm compresses, elevation as well as NSAIDs. Patient's vitals reassuring and comfortable discharging the patient for outpatient therapy. Discharge Plan Departure Patient Disposition: Home Clinical Impression: Acute foot pain, Cellulitis Instructions: DI for Cellulitis -- Adult, DI for Foot Sprain Activity Restrictions/Additional Instructions: Thank you for coming to the [facility] Emergency Department today. We will treat empirically for cellulitis with antibiotics prescribed. I also recommend you elevate the foot as well as uses hot warm compresses in the event that this is a bad sprain and more muscular in nature. Please use also use ibuprofen as needed for the pain. I hope you feel better soon. Prescriptions: New cephalexin 500 mg capsule 500 mg PO QID 7 Days Qty: 28 0RF No Action dicyclomine 20 mg tablet 20 mg PO QID PRN (Reason: abdominal discomfort) Qty: 15 0RF ondansetron HCl [Zofran] 4 mg tablet 4 mg PO Q6H PRN (Reason: nausea and vomiting) Qty: 12 0RF hydrocodone-acetaminophen [[place]] 5-325 mg tablet 1 tab PO Q6H PRN (Reason: pain) Qty: 12 0RF amlodipine 5 mg tablet 5 mg PO DAILY Qty: 30 0RF oxycodone 5 mg tablet 5 mg PO Q4H PRN (Reason: post operative pain) Qty: 30 0RF docusate sodium 100 mg capsule 100 mg PO BID Qty: 20 0RF Stand Alone Forms: Work Release Note Visit Report Forms: Patient Portal/API <Sarah Beth Brizuela DO - Last Filed: 09/16/22 08:58> Cosign ED Attending Heriberto Attestation: I was immediately available in the department for consultation. Documentation has been reviewed. I agree with assessment and plan.
== END 2022-09-15 20:32 | disposition home or self-care (01) ==
PROVIDERS: Emergency Provider Physician Assistant Medical; Family Provider Family Medicine
DX: L03.115 Cellulitis of right lower limb (principal); M79.671 Pain in right foot
CPT/HCPCS: 99281

== ENCOUNTER 2023-08-29 10:57 | Day surgery (SDC) | payer OTHER, SELFPAY ==
[2020-07-23 09:32] VITALS: BMI 33.5
--- NOTE | 2023-08-29 | PATH_ITS ---
[facility] Accession Number: [id number] No. of containers..01 Tissue . 01 Material submitted: . colon - ASCENDING COLON . 01 Diagnosis: Ascending Colon: Tubular adenoma. MRV 09/01/2023 1325 Local . 01 Electronically signed: . Shante Ordaz MD, Pathologist NPI- [id number] . 01 Gross description: . ASCENDING COLON: Received in formalin is 1 fragment(s) of gibbs, soft tissue measuring 0.8 x 0.4 x 0.3 cm submitted entirely in 1 cassette(s) /AAY 08/31/2023 0253 Local . 01 Pathologist provided ICD-10: K63.5 . 01 CPT . 450565 Specimen Comment: A courtesy copy of this report has been sent to [phone] Performed at: 01 [facility] [address] [place] [address] [id number] MD Jhon Sullivan MD Phone: [phone]
[2023-08-29 11:14] VITALS: BP 153/86; PULSE 79; RESP 17; TEMP 36.2; O2SAT 97; BMI 35.2
[2023-08-29] MEDS: LACTATED RINGERS 1,000 ML 150 ML IV (11:27)
--- NOTE | 2023-08-29 12:00 | P.HP_ITS ---
History of Present Illness History of Present Illness Date Patient Seen: 08/29/23 Time Patient Seen: 12:00 Chief complaint: Screening Colonoscopy Narrative: The patient presents for colorectal screening. They have never had any previous examination for such. No personal or family history of colon cancer. On further history denies any recent gastrointestinal symptoms. No nausea, vomiting, abdominal pain, loss of appetite, unexplained weight loss, change in bowel habits, or blood per rectum. [facility] Medical History (Updated 09/30/22 @ 00:00 by ) HTN (hypertension) Patient denies medical problems Surgical History History of repair of ACL Hx of knee surgery Hx of vasectomy Family History Father Hypertension Gallstones Mother Breast cancer Social History marital status: household members: spouse occupational status: employed Smoking Status: Never smoker alcohol intake: current substance use type: does not use Meds Home Medications and Allergies Home Medications Medication Instructions Recorded Confirmed Type amlodipine 5 mg tablet 5 mg PO DAILY #30 tabs 06/21/20 08/29/23 Rx hydrochlorothiazide 12.5 mg tablet 12.5 mg PO DAILY blood pressure 08/29/23 08/29/23 History Allergies Allergy/AdvReac Type Severity Reaction Status Date / Time No Known Drug Allergies Allergy Verified 08/29/23 11:09 Exam Vital Signs (past 8 hours): - 08/29/23 11:14 Temperature 97.2 F L Pulse Rate 79 Respiratory Rate 17 Blood Pressure 153/86 H Pulse Oximetry 97 Oxygen Delivery Method Room Air Oxygen Delivery Method Room Air Narrative Exam Narrative: General adult man alert oriented no acute distress Assessment & Plan Assessment & Plan narrative: The patient requires colorectal screening and colonoscopy is recommended. Technical details were discussed. Risks, benefits, alternatives explained. Risks including but not limited to myocardial infarction, aspiration, bleeding, pain, missed lesion, incomplete examination, need for further radiographic studies, colonic perforation, and need for major abdominal surgery were discussed. All questions were answered to their satisfaction, and they are in agreement with this plan.
--- NOTE | 2023-08-29 12:03 | PM.OP.COLON ---
Operative Date/Time/Diagnoses Date of procedure: 08/29/23 Time of procedure: 12:03 Pre-op diagnosis: Colorectal screening Post-op diagnosis: other (Colonic polyp x1) Procedure & Clinicians Study performed: Colonoscopy Same procedure as scheduled: Yes Indications: Colorectal screening Surgeon: Vernon Morgan Procedure Notes Procedure in detail: The history and physical was performed/updated and the patient is ASA class is 2. The procedure was discussed in detail with the patient. Potential risks complications including infection, bleeding, missed diagnosis, perforation, need for surgery, and were explained. Their questions were answered and informed consent was obtained. Patient was brought to the procedure room and placed standard monitoring equipment. The patient's vital signs were monitored continuously throughout the entire procedure. Prior to starting time-out was performed. The patient was placed in the left lateral recumbent position. Procedural sedation was administered by anesthesia. Examination began with a thorough inspection of the perianal area there was no evidence of fissures, fistulae, external hemorrhoids or cutaneous malignancy. The colonoscopy scope was then placed into the anal canal and was advanced to the cecum, which was identified by the ileocecal valve, the appendiceal orifice and the confluence of the taenia. The scope was then slowly withdrawn examining colon thoroughly in all directions, irrigating it of any residual stool. Ascending colon-8 mm polyp pedunculated removed with cold snare in its entirety. The patient tolerated the procedure well. They will be discharged once criteria are met. The prep was of good/excellent quality. The withdrawl time was 7 minutes. Specimen(s): other (Ascending colon polyp) Impression: Colonic polyp x1 Post-procedure Plan for aftercare: Follow-up is dependent on pathology findings likely 5 years Disposition: same day surgery
[2023-08-29 12:26] VITALS: BP 121/75; PULSE 76; RESP 14; TEMP 36.9; O2SAT 98
[2023-08-29 12:31] VITALS: BP 139/87; PULSE 71; RESP 14; O2SAT 97
== END 2023-08-29 12:55 | disposition home or self-care (01) ==
PROVIDERS: Family Provider Family Medicine; Referring Provider Surgery; Visit Provider Surgery
PROC: 0DJD8ZZ Inspection of Lower Intestinal Tract, Via Natural or Artificial Opening Endoscopic (ICD-10-PCS; CPT 45378; principal; 2023-08-29 12:15)
DX: Z12.11 Encounter for screening for malignant neoplasm of colon (principal); K63.5 Polyp of colon
CPT/HCPCS: 45385; J2704